=== PATIENT | male | born 1965 | race Caucasian/White ===

== ENCOUNTER 2021-06-15 10:56 | Day surgery (SDC) | payer MEDICARE, MEDICAID ==
[~2021-06-15] VITALS: Ht 160 cm; Wt 82.0 kg
[2021-06-15] MEDS ORDERED: ACETAZOLAMIDE SODIUM 500MG/VIAL IV ONE (11:30)
[2021-06-15 11:43] LABS: BASOPHILS % 0.6 % (0.0-2.0); EOSINOPHILS % 3.2 % (0.0-5.0); HEMATOCRIT. 39.6 % (42.0-52.0); HEMOGLOBIN. 14.2 g/dL (14.0-18.0); MEAN CORPUSCULAR HEMOGLOBIN 30.6 pg (28.0-32.0); MEAN CORPUSCULAR VOLUME 85.6 fL (80.0-94.0); MEAN PLATELET VOLUME 8.4 fl (7.4-10.4); MONOCYTES % 6.4 % (2.0-8.0); NEUTROPHILS % 54.8 % (40.0-76.0); PLATELET 215 x1000/uL (130-400); RED BLOOD CELL COUNT 4.62 mill/uL (4.7-6.1); RED CELL DISTRIBUTION WIDTH 12.7 % (11.6-14.6)
[2021-06-15 11:49] LABS: CHLORIDE 108 mEq/L (98-107)
[2021-06-15 11:55] LABS: PROTHROMBIN TIME 10.9 sec (9.6-11.0)
[2021-06-15] MEDS ORDERED: TRIAMCINOLONE ACETONIDE 40MG/ML 1ML VIAL ONE (13:44)
[2021-06-15 13:52] VITALS: BP 142/85
[2021-06-15] MEDS ORDERED: PROPOFOL 200MG/20ML VIAL IV ONE (14:47)
[2021-06-15] MEDS ORDERED: HYDROMORPHONE HCL/PF 2MG/ML CPJ IV PRN (15:30)
[2021-06-15] MEDS ORDERED: MEPERIDINE HCL/PF 25MG/ML CPJ IV PRN (15:30)
[2021-06-15] MEDS ORDERED: LABETALOL 5MG/ML SYR 20 MG/4 ML SYRINGE IV PRN (15:30)
[2021-06-15] MEDS ORDERED: ONDANSETRON HCL 4MG/2ML INJ IV PRN (15:30)
== END 2021-06-15 16:30 | disposition admitted as inpatient to this hospital (09) ==
LOC: ER 10:56 → OR 14:30 → CANBEDREQ 16:11 → OR 16:30
PROVIDERS: ATTEND Ophthalmology
DX: E11.319 Type 2 diabetes mellitus with unspecified diabetic retinopathy without macular edema (principal); H40.10X0 Unspecified open-angle glaucoma, stage unspecified; H57.89 Other specified disorders of eye and adnexa; I10 Essential (primary) hypertension; Z20.822 Contact with and (suspected) exposure to COVID-19; Z86.73 Personal history of transient ischemic attack (TIA), and cerebral infarction without residual deficits; Z98.890 Other specified postprocedural states
CPT/HCPCS: 36415; 66180; 80053; 85025; 85610; 87426; 96374; 99283; J1120; J2704; J3301; C1762; C1783